=== PATIENT | female | born 1995 | race Asian ===

== ENCOUNTER 2023-05-09 14:44 | Emergency (ER) | payer BC, SELFPAY ==
[2023-05-09 14:59] VITALS: BP 129/76; PULSE 89; RESP 16; TEMP 37.3; O2SAT 99
--- NOTE | 2023-05-09 15:19 | ED.URI ---
HPI - URI/Sore Throat General Chief Complaint: Upper Respiratory Infection Stated Complaint: Cough Time Seen by Provider: 05/09/23 15:20 Source: patient Mode of arrival: ambulatory Limitations: no limitations History of Present Illness HPI Narrative: 27 yo F presents with c/o chest congestion, cough, bodyaches and nasal congestion since yesterday. Afebrile. tested positive for covid. did not do a home covid test. All systems reviewed and negative except as noted above. Related Data Home Medications Medication Instructions Recorded Confirmed desogestrel-e.estradiol 0.15 1 tablet PO DAILY 05/09/23 05/09/23 mg-0.02 mg(21)/e.estrad 0.01 mg(5) tablet (Volnea (28)) Allergies Allergy/AdvReac Type Severity Reaction Status Date / Time No Known Allergies Allergy Verified 05/09/23 15:12 Review of Systems Review of Systems: CONSTITUTIONAL: Denies fever, chills, or sweats. EYES: Denies visual changes, redness, or discharge. ENT: reports rhinorrhea, congestion. Denies sore throat, or otalgia. CARDIOVASCULAR: Denies chest pain, palpitations, or edema. RESPIRATORY: reports cough, chest congestion. Denies dyspnea. GASTROINTESTINAL: Denies abdominal pain, nausea, vomiting, or diarrhea. GENITOURINARY: Denies dysuria or hematuria. SKIN: Denies rash or itching. MUSCULOSKELETAL: Denies back pain, joint pain, or myalgia. NEUROLOGIC: Denies headache, numbness, or weakness. PSYCHIATRIC: Denies anxiety or depression. All other systems reviewed are negative, except as documented in HPI. PMFSH Comments At time of signature, agree with nursing past medical, surgical, social and family history. There is no relevant family history pertinent to the presenting complaint. Exam Narrative: GENERAL: This is a well-nourished, well-developed patient, in no apparent distress. HEAD: normocephalic, atraumatic. EYES: PERRL. Sclera clear/white. Vision is grossly intact. EARS: External ears normal, auditory canals clear and without drainage, TMs normal without perforation. Hearing grossly intact. NOSE: External nose normal with no obvious nasal discharge, nares without redness, no rhinorrhea. THROAT: Mucous membranes moist, posterior pharynx clear. NECK: Neck supple, non-tender without lymphadenopathy, masses or thyromegaly. CARDIOVASCULAR: Regular rate and rhythm without murmurs, gallops, or rubs. RESPIRATORY: Clear to auscultation. Breath sounds equal bilaterally. No wheezes, rales, or rhonchi. SKIN: warm, Dry, intact with no suspicious lesions or rash, good texture and turgor. NEURO: awake, alert, and oriented to person, place and time. There were no obvious focal neurologic abnormalities. EXTREMITIES: No joint tenderness, effusion, or edema noted. Course Course Level of Care: Express Care Visit Vital Signs Vital signs: Vital Signs Temperature 37.3 C 05/09/23 14:59 Pulse Rate 89 05/09/23 14:59 Respiratory Rate 16 05/09/23 14:59 Blood Pressure 129/76 05/09/23 14:59 Pulse Oximetry 99 05/09/23 14:59 Oxygen Delivery Room Air 05/09/23 14:59 Temperature 37.3 C 05/09/23 14:59 Pulse Rate 89 05/09/23 14:59 Respiratory Rate 16 05/09/23 14:59 Blood Pressure 129/76 05/09/23 14:59 Pulse Oximetry 99 05/09/23 14:59 Oxygen Delivery Room Air 05/09/23 14:59 reviewed MDM - URI/Sore Throat MDM Narrative Medical decision making narrative: Patient is aware of diagnosis, understands and agrees to treatment plan. Anticipatory guidance given. Patient agrees to follow-up as directed and is aware of reasons to seek care at the emergency department. Portions of this record may have been created with voice recognition software negative covid test. pt well appearing. lungs clear to auscultation Differential Diagnosis Differential diagnosis: Likely upper respiratory infection Discharge Plan Discharge Clinical Impression: Viral upper respiratory tract infection with cough Pat
== END 2023-05-09 16:00 | disposition home or self-care (01) ==
PROVIDERS: Emergency Provider Nurse Practitioner Family
DX: J06.9 Acute upper respiratory infection, unspecified (principal); Z20.822 Contact with and (suspected) exposure to COVID-19
CPT/HCPCS: 87426; 99213; C9803; G0463

== ENCOUNTER 2024-08-26 07:48 | Observation (INO) | payer BC, SELFPAY ==
[2024-08-26 10:01] VITALS: BMI 30.7
--- NOTE | 2024-08-26 10:01 | OBADM ---
This patient, Fanny Mcfadden, admitted to the OB room Labor/Delivery/Recovery 104 for observation. Patient/family oriented to hospital policies and general routines including ID bracelet, bed and alarms, visiting hours, pain management, procedures, bathroom and other care routines, personal items, smoking policy, room service/diet, and visiting hours. Patient/Family are encouraged to report perceived risks to care and to ask questions if they do not understand what they are told or what they should do.
--- NOTE | 2024-08-28 08:51 | PM.OBTRLD ---
OB - Triage/Final Diagnosis Visit Information Comments/Additional reasons for admission: I have assessed the risk for this patient, Fnany Mcfadden, and determined that she would benefit from observation care. Final Diagnosis (1) Irregular contractions: Code(s): O47.9 - False labor, unspecified Status: Acute
== END 2024-08-26 10:15 | disposition home or self-care (01) ==
PROVIDERS: Admitting Provider Obstetrics & Gynecology; Visit Provider Obstetrics & Gynecology
DX: O47.1 False labor at or after 37 completed weeks of gestation (principal); Z3A.39 39 weeks gestation of pregnancy
CPT/HCPCS: G0378; G0379

== ENCOUNTER 2024-08-28 23:26 | Inpatient (IN) | payer BC, SELFPAY ==
[2024-08-28 23:35] VITALS: PULSE 99; O2SAT 98
[2024-08-28 23:40] VITALS: PULSE 95; O2SAT 99
[2024-08-28 23:42] VITALS: BP 139/93; PULSE 88
[2024-08-28 23:45] VITALS: PULSE 97; O2SAT 100
[2024-08-28 23:50] VITALS: PULSE 110; O2SAT 100
[2024-08-28 23:55] VITALS: PULSE 104; O2SAT 100
[2024-08-28 23:58] VITALS: BMI 30.8
[2024-08-29] VITALS (75 sets, daily range): BP systolic 85–154; BP diastolic 42–106; PULSE 51–163; RESP 16–18; TEMP 36.1–37.7; O2SAT 72–100
--- NOTE | 2024-08-29 | LDADM ---
This patient, Fanny Mcfadden, was admitted to Labor/Delivery/Recovery 105 on 08/28/24 at 23:26. Plans for labor, pain management and were discussed with patient. Patient/family oriented to hospital policies and general routines including ID bracelet, bed and alarms, visiting hours, pain management, procedures, bathroom and other care routines, personal items, smoking policy, room service/diet and guest tray routines, security routines, and visiting hours. Patient/Family are encouraged to report perceived risks to care and to ask questions if they do not understand what they are told or what they should do. See OBIX for further documentation.
[2024-08-29 00:09] LABS: Basophils Absolute Auto 0.1 K/mm3 (0.0-0.1); Basophils Percent Auto 0.5 % (0.2-1.2); Eosinophils Absolute Auto 0.1 K/mm3 (0-0.3); Eosinophils Percent Auto 1.1 % (0-4.4); Hematocrit 38.9 % (37.0-47.0); Hemoglobin 13.2 g/dL (12.0-15.0); Immature Granulocyte Absolute 0.15 K/mm3 (0.00-0.031); Immature Granulocyte Percent A 1.6 % (0-0.5); Lymphocytes Absolute Auto 1.33 K/mm3 (0.9-3.2); Lymphocytes Percent Auto 13.9 % (18.3-44.2); Mean Corpuscular HGB Conc 33.9 g/dl (32-36); Mean Corpuscular Hemoglobin 30.1 pg (26-34); Mean Corpuscular Volume 88.6 fl (80-100); Mean Platelet Volume 9.4 fl (7.4-10.4); Monocytes Absolute Auto 0.7 K/mm3 (0.1-0.6); Monocytes Percent Auto 7.5 % (2.6-8.5); Neutrophils Absolute Auto 7.2 K/mm3 (1.3-6.7); Neutrophils Percent Auto 75.4 % (45.5-73.1); Platelet Count Result 256 k/mm3 (150-375); Red Blood Count 4.39 M/mm3 (4.2-5.4); White Blood Count 9.6 K/mm3 (4.5-10.0)
[2024-08-29] MEDS: LACTATED RINGERS 1,000 ML 125 ML IV CONT (00:15)
[2024-08-29] MEDS: ONDANSETRON INJ 4 MG/2 ML VIAL IV PUSH (00:30)
--- NOTE | 2024-08-29 00:32 | P.PNAN_ITS ---
Anes - Eval Pre Procedure Procedure: Labor Epidural Date/Time: 08/29/24 00:32 Surgeon: Viral Preop Diagnosis: Labor Pain Pre Op Diagnosis: Contractions Patient Data Age: 29 Gender: F Height: 1.57 m Weight: 76.4 kg Last Vital Signs Pulse 108 H 08/29/24 00:30 BP 125/87 08/29/24 00:30 Pulse Ox 100 08/29/24 00:30 Allergies Allergy/AdvReac Type Severity Reaction Status Date / Time No Known Allergies Allergy Verified 08/09/24 11:42 Home Medications ?Medication ?Instructions ?Recorded ?Confirmed ?Type kmbgejm-lbnx-MG 40 mg-1 tablet PO 08/09/24 History mg chewable tablet Laboratory Tests 08/28/24 23:53 WBC 9.6 K/mm3 (4.5-10.0) RBC 4.39 M/mm3 (4.2-5.4) Hgb 13.2 g/dL (12.0-15.0) Hct 38.9 % (37.0-47.0) MCV 88.6 fl (80-100) MCH 30.1 pg (26-34) MCHC 33.9 g/dl (32-36) RDW 14.0 % (11.5-14.5) Plt Count 256 k/mm3 (150-375) MPV 9.4 fl (7.4-10.4) Immature Gran % (Auto) 1.6 H % (0-0.5) Neut % (Auto) 75.4 H % (45.5-73.1) Lymph % (Auto) 13.9 L % (18.3-44.2) Platte % (Auto) 7.5 % (2.6-8.5) Eos % (Auto) 1.1 % (0-4.4) Baso % (Auto) 0.5 % (0.2-1.2) Lymph # (Auto) 1.33 K/mm3 (0.9-3.2) Platte # (Auto) 0.7 H K/mm3 (0.1-0.6) Eos # (Auto) 0.1 K/mm3 (0-0.3) Baso # (Auto) 0.1 K/mm3 (0.0-0.1) Abs Immat Gran (auto) 0.15 H K/mm3 (0.00-0.031) Absolute Neuts (auto) 7.2 H K/mm3 (1.3-6.7) Absolute Nucleated RBC 0.000 K/mm3 (0.0-0.012) Nucleated RBC % 0.0 % (0.0-0.2) RPR Pending HIV 1&2 Ab/P24 Ag 4thGn Pending Blood Type Pending Antibody Screen Pending Patient hx anesthesia problems: none Family hx anesthesia problems: none Results Review: All pre-operative results and documents have been reviewed as part of the pre- operative evaluation. [facility] Social History Social History Substance use: never Spiritual care concerns: No Exam Day of Procedure 08/29/24 00:32 Patient weight: normal Heart: regular rate and rhythm Lungs: normal air movement Airway: Mallampati scale class II Neurological: alert and oriented
[2024-08-29 00:49] LABS: HIV 1/2 Ab P24 Ag Result Negative (Negative)
[2024-08-29 01:02] LABS: Rapid Plasma Reagin Non-Reactive (NonReactive)
--- NOTE | 2024-08-29 02:09 | WPDOBADMIT ---
Obstetrics - Admit Note Admission Note: record reviewed. No pertinent additions to the history and/or any subsequent changes in the physical findings that are not consistent with the expected course of the were found. Patient admitted in labor, SVE 5cm on admission. Plan for expectant management. FHR category I. Additions to the history and/or subsequent changes in the physical findings follow. None.
--- NOTE | 2024-08-29 04:12 | PM.OBPRVD ---
OB - Vaginal Delivery Note Procedure Delivery date: 08/29/24 Induction method: None Delivery monitor: External FHT and External Uterine Route of delivery: Episiotomy description: None Laceration Description: Periurethral (bilateral) and Perineal - 2nd Degree Delivery repair: vicryl Specimen: No Quantitative Blood Loss (ml): 100 Anesthesia type: Epidural Disposition: Floor Complications: No immediate complications Narrative: See H&P and notes for details on patient's admission and labor. She progressed to complete cervical dilation and at the appropriate time began pushing. With adequate expulsive efforts by the mother, the baby's head was delivered without difficulty. Nuchal cord was not present. The baby's right shoulder was anterior and delivered under the pubic symphysis without difficulty. The posterior shoulder and the rest of the baby delivered without difficulty. The umbilical cord was doubly clamped and cut after 60 seconds of delayed cord clamping. Care of the infant was then assumed by the nursing staff. Baby Date of : 08/29/24 Gestational Age by Date: 39 Infant gender: Female presentation: vertex position: Left Occiput Anterior Placenta delivery description: Expressed Cord Vessel Description: 3 Vessels and Delayed Cord Clamping score one minute: 8 score five minutes: 9
[2024-08-29] MEDS: WITCH HAZEL 40 PADS 1 PAD TOPICAL (06:34)
[2024-08-29] MEDS: BENZOCAINE 20% AER SPR (*SP) 56 GM CAN 1 SPRAY TOPICAL (06:34)
[2024-08-29] MEDS: diphenhydrAMINE HCl CAP 25 MG CAPSULE (06:45)
[2024-08-29] MEDS: LORATADINE 10 MG TABLET PO (06:55)
--- NOTE | 2024-08-29 08:25 | PC.NURSE ---
0825- To patient room to assess needs related to . Mom is currently attempting to feed and baby is sleepy. We tried for about 10 minutes and baby would open and latch but wouldn't suck. Eventually baby fell back asleep and wouldn't open her mouth to latch. Encouraged skin to skin and watching for feeding cues. Will try again in 30 minutes. admission packet given. Reported to primary RN. 0901- Mom called out saying that baby was trying to latch but she was struggling to get a good latch. Mom had baby in cradle hold on the left breast. We tried for several minutes and baby would latch and suck one to two times before letting go of the breast. We switched to the right breast and baby latched after a few attempts. She maintained the latch well and suckled intermittently with stimulation and encouragement. Mom states the latch feels tender and baby is clamping down on the nipple. The latch appears optimal, with a wide gape, baby's tongue is visualized cupping the nipple, and lips are flanged out. Infant does show signs of law fatigue with intermittent chin quivering after a short burst of 3-4 sucks. Discussed with mom that we will try some different positions at the next feeding on the left breast. She agrees. Encouraged her to continue encouraging baby to nurse for 10-15 minutes and offer the second breast if she continues to show any feeding cues after the first breast. Reviewed documenting on the blue sheet with dad. Reported to primary RN.
[2024-08-29] MEDS: IBUPROFEN 600 MG TABLET PO (14:17)
--- NOTE | 2024-08-29 15:00 | PC.NURSE ---
1500- Went to patient room to see if they had any successful feedings. Mom attempted several times and expressed colostrum into baby's mouth. We made all attempts to wake baby. She did root and latch but wouldn't suck. Finally she started having REM sleep and stirring. We switched to football on the right side and baby latched at 1520 and sucked with stimulation. She did about 5 minutes and came off. Several swallows were heard. We tried to relatch but baby would not open her mouth. Advised mom to give baby 1-2 hours to rest and watch for feeding cues. If she gets close to 2 hours without feeding, mom will place baby skin to skin and begin initiating a feeding. She will call for assistance as needed. Reported to primary RN.
[2024-08-30 04:30] VITALS: BP 128/83; PULSE 102; RESP 16; TEMP 37.5; O2SAT 98
[2024-08-30 05:27] LABS: Hematocrit 36.1 % (37.0-47.0); Hemoglobin 12.3 g/dL (12.0-15.0)
[2024-08-30 07:05] VITALS: BP 124/86; PULSE 89; RESP 16; TEMP 37.7
[2024-08-30] MEDS: IBUPROFEN 600 MG TABLET PO (07:07)
[2024-08-30] MEDS: LORATADINE 10 MG TABLET PO (07:08)
[2024-08-30] MEDS: MULTIVIT/MIN/PREN/FOL AC/IRON TABLET 1 TAB PO (07:08)
--- NOTE | 2024-08-30 09:30 | P.PNOB_ITS ---
OB - PN: Subj Subjective Date/time seen: 08/30/24 09:30 Interval history: PPD#1 s/p Doing well, pain controlled Some sinus symptoms, discussed symptomatic relief safe with Bleeding minimal Voiding without issue Ready for discharge home today OB - PN: Obj Data Labs 08/30/24 04:00 Labs: Laboratory Results - last 24 hr 08/30/24 04:00 Hgb 12.3 Hct 36.1 L OB - PN A/P Assessment and Plan (1) (spontaneous vaginal delivery): Code(s): O80 - Encounter for full-term uncomplicated delivery Status: Acute Plan day: 1 Plan: routine care and discharge home Time Spent With Patient Time: Total time spent is greater than 50% in coordination of care (as documented) at patient's floor/unit and/or counseling patient: Review of Systems 2 Review of Systems: All systems reviewed & are unremarkable except as noted in HPI and below Exam 2 Const: General: comfortable and no acute distress O rientation/consciousness: patient oriented x3 Resp: Effort & Inspection: normal respiratory effort
--- NOTE | 2024-08-30 09:32 | PM.OBDSVD ---
DS: Admitting Diagnosis Discharge Date 08/30/24 Admitting Diagnosis labor DS: Discharge Diagnosis Discharge Diagnosis (1) (spontaneous vaginal delivery): Code(s): O80 - Encounter for full-term uncomplicated delivery Status: Acute OB - DS: Summary OB Procedures : None OB Procedures Intrapartum: Spontaneous Vag Delivery OB Procedures: : None Peripartum Data Laceration Description: Periurethral (bilateral) and Perineal - 2nd Degree Episiotomy description: None Time Spent with Patient Time attestation: Total time spent providing and/or coordinating discharge services: DS: Data Data Completed and Pending Labs on day of discharge: Labs from last 24 hours 08/30/24 04:00 Hgb 12.3 Hct 36.1 L Discharge Plan Discharge Attending physician on discharge: Matt Stratton Consulting providers: Fanny Cannon Discharging Clinician: Matt Stratton Patient Disposition: Home, Self-Care Activity: may shower, as tolerated and pelvic rest Diet: as tolerated Patient Instructions: Antibiotic Form Patient Language: Sudanese Stand Alone Forms: General Discharge Information Follow-up/Referrals: Matt Stratton MD [Physician] - 4 Weeks Discharge Medications: New Saline Nasal 0.65 % aerosol,spray 2 spray intranasal QID PRN (Reason: nasal congestion) Qty: 44 0RF docusate sodium 100 mg Capsule 100 mg PO BID PRN (Reason: Constipation) Qty: 60 0RF ibuprofen 600 mg Tablet 600 mg PO Q6H PRN (Reason: Cramping) Qty: 30 0RF Continued dxfmzub-auiq-TR 40-1 mg tablet,chewable PO Date of admission: 08/28/24 23:26 Primary Care Provider: UNKNOWN,DOCTOR Admitting Provider: Matt Stratton Attending physician on admission: Matt Stratton Condition: Stable
--- NOTE | 2024-08-30 10:33 | WPDANLDPN2 ---
Anes-Prog Note L&D Date/Time: 08/30/24 10:33 Comfortable throughout: labor and delivery Neuraxial method: epidural Epidural/Spinal procedure site: clean & non-tender Neuro status: Neuro function grossly intact. Cardiovascular status: normal Respiratory status: normal Airway patency: baseline Mental status: baseline Post-Op hydration status: normal Vital Signs: Last Vital Signs Temp 100 F H 08/30/24 07:05 Pulse 89 08/30/24 07:05 Resp 16 08/30/24 07:05 BP 124/86 08/30/24 07:05 Pulse Ox 98 08/30/24 04:30 O2 Del Method Room Air 08/29/24 19:30 Pain score (VAS): 0 Post-procedural complaints: none Patient feedback: Patient satisfied with anesthetic care.
--- NOTE | 2024-08-30 16:44 | PC.NURSE ---
1100. Observed mother latching to the left breast in cross cradle position. Infant was able to maintain an appropriate latch. Mother declines nipple pain/discomfort throughout feeding. Encouraged mother to keep awake and nursing at the breast for 15 minutes. Mother taught to listen for infant swallowing during feedings. Reviewed using the blue feeding sheet to record time and duration of feeding. Reviewed cluster feeding with mom and dad. Education given to the mother of how to visualize the suckling (with good rocking jaw motion) swallows (dropping of the lower jaw) and how to listen for drinking at the breast (the ka sound). Nipple care reviewed with optimal latch, good positioning and using clean hands when touching her breast. Mother verbalizes she is able to independently latch with appropriate positioning and alignment.. Infant is currently meeting outcomes for weight, output, jaundice, blood sugar and feeding frequencies of 8-12 times in 24 hours. Mother declines any additional assistance or education at this time. Mother is encouraged to call for assistance if her infant doesn?t latch, pain with latching, questions or concerns. Mother voiced understanding of information shared along with the mom/baby guide for an additional resource. Reported to the Primary RN.
[2024-09-02 10:22] VITALS: BP 131/80; PULSE 87; RESP 18; TEMP 37.2; O2SAT 100
== END 2024-08-30 12:35 | disposition home or self-care (01) | DRG 807 ==
LOC: ANHLDR 23:44 → ANHOB2 08-29 06:34
PROVIDERS: Admitting Provider Obstetrics & Gynecology; Visit Provider Obstetrics & Gynecology
DX: O70.1 Second degree perineal laceration during delivery (principal); Z37.0 Single live birth; Z3A.39 39 weeks gestation of pregnancy; O71.82 Other specified trauma to perineum and vulva
CPT/HCPCS: 36415; 85014; 85018; 85025; 86592; 86703; 86850; 86900; 86901; A9270; G0432; J2405; J2795; J7120

== ENCOUNTER 2024-09-19 13:53 | Outpatient (RCR) | payer BC, SELFPAY ==
--- NOTE | 2024-09-19 16:58 | PC.NURSE ---
In- 1450 Out- 1555 Reason for visit: Mom had concerns about the infants latch, and concerns about infants weight gain and her milk production volume History: Consulted with patient to assess needs related to . Discussed with mother her successes, concerns and any questions she has. We reviewed working with the , supporting breast, protecting her nipples with an optimal deep latch, good positioning, and good hand washing. Mom reports she has exclusively breastfed since with an occasional bottle with pumped breastmilk. She denies any medical complications or risk factors for decreased milk supply. Infant was born at 39 weeks vaginally. Mom takes no medication and has no significant medical history that would interfere with . History: Mom reports had a to be expected 1st week home from the hospital but mom reports she believes infant has been harder to satisfy and wanting to feed more the last few days. Mom is concerned infant may not be getting enough milk or she may have something wrong with her latch. She reports infant has had a blister looking bubble on her upper lip on occasion pop up. Mom reports has around 11-13 feedings in a 24 hour period, at least 5 stools and 7-8 or more wet diapers in a day. mom reports her breasts do feel softer after a feeding. Observations: Reviewed positioning and ear, shoulder, hip alignment, supporting the breast to facilitate a deep latch, asymmetrical latch (off-center), leading with the chin with a big, open, wide gape and body close to mother. Infant latched optimally to the right breast in cross cradle position. Infant was able to maintain latch without pain to mother. Infant did have tendency to roll upper lip so we reviewed how to flip the lip outward into the proper positioning. Mom reports she feels her breasts filling with milk before a feeding and she is able to hear swallowing milk with feedings. Both breasts are WNL and mom reports she does have some nipple tenderness on occasion but not often. We did a preweight and postweight after infant fed at the breast for 20 min. This infant took approximately 1.7oz of milk from the R breast during the feeding session. After feeding was rooting more so encouraged mom to offer the other breast. weight: 6lb 11oz Lowest weight: 6lb 4.2oz Last weight: 7lb 0.2oz Pre-feed weight: 7lb 0.2oz Post-feed weight: 7lb 1.9oz Plan of Care: Encouraged mom to continue . Mom reports she typically had been offering one breast per feeding and we discussed offering both sides. We discussed a few different ways to try and boost her supply with the main way being power pumping. We reviewed how to latch infant with a deep latch pointing the nipple towards the roof of the infants mouth and ensuring that her upper lip does not roll under. Follow up plans: mom is to follow up with her runway model as scheduled for regular weight checks. A CLC will give mom a follow up phone call in the next 48-72 hours to discuss how she and the are doing.
== END 2024-12-18 23:59 | disposition home or self-care (01) ==
LOC: ANHOBOP 13:53
PROVIDERS: Visit Provider Pediatrics
DX: O92.79 Other disorders of lactation (principal)
CPT/HCPCS: 99212; G0463